=== PATIENT | male | born 1960 | race Caucasian/White ===

== ENCOUNTER 2024-11-13 23:28 | Emergency (ER) | payer SELFPAY ==
--- OUTSIDE RECORDS SUMMARY | 2022-01-28 05:00 | XMS_ITS | Continuity of Care Document ---
Author Organization [facility] Address [address] [place] [address] Phone Care Team Providers Care Janitorial Cleaner Name Role Phone Jaime MSN, WINDOWS APPLICATION DEVELOPER, Ibis Unavailable Unavai lable Procedures Procedure Date SCREEN DEPRESSION PERFORMED Advance Directives Directive Yes / No Effective Date File Name No Information Encounters Encounter Description Practice Location Reason(s) For Visit Diagnoses Date Provider [facility], [address] [place], [address], tel:[phone] [facility] No Information [address] Jaime [address]umann. [address], [place], [id number], [place]. tel:[phone] Family History Family Member Type Diagnosis Age At Onset No Information Payers Payer name Insurance type Covered green party ID Authoriza tion(s) No Information Social History Type Description Quantity Date Captured Comments Alcohol Use Details Unknown Caffeine Use Details Unknown Tobacco Use Status No Information Smoking Status No Information Sex Male Sexual Orientation Straight or heterosexual Jan Gender Identity Male Chief Complaint And Reason For Visit No Information Plan Of Treatment Date Type Action Status Goal Obtain Height, Weight, and B AL. Due on due Goal Tobacco Use Cessation Counse ling. Due on due Goal Drug Abuse Screening Test (D AST-10). Due on due Goal Follow up Plan f or abnormal BMI (Less than 18.5, greater than 25). Due on due Goal Tobacco Use Screening. Due o n due Goal HIV screen. Due on due Goal Lipid panel. Due on due Goal Diabetes screening. Due on due Goal Generalized Anxiety Disorder - 7 (HCANDU-7). Due on due Goal CBC. Due on due Goal Colonoscopy. Due on due Goal CMP. Due on due Goal Depression screening. Due on due Goal Vitamin D. Due on due Goal Vitamin B12. Due on due Goal Hepatitis C Screening. Due o n due Goal FOBT. Due on due Goal Influenza vaccine. Due on due History Of Present Illness Encounter Date Complaint History Of Prese nt Illness No Information Instructions Date Instruction Additional Infor mation No Information Assessments Type Assessment Date No Information
--- NOTE | 2024-11-13 23:26 | ECG_ITS ---
APPROVED REPORT Exam: Resting ECG HR:81 bpm ECG Measurements Heart Rate 81 AXES IN 159 P 63 QRSd 107 QRS 10 QT 357 T 45 QTc 394 Conclusion SINUS RHYTHM WITH OCCASIONAL SUPRAVENTRICULAR PREMATURE COMPLEXES BORDERLINE ECG UNCONFIRMED REPORT Electronically signed by : CASANDRA TOBAR, 11/14/2024 23:58:07
[2024-11-13 23:29] VITALS: BP 123/78; PULSE 85; RESP 20; TEMP 36.9; O2SAT 99; BMI 33.5
--- NOTE | 2024-11-13 23:29 | HMH.EDGENADL ---
Discharge Plan Disposition Patient Disposition: Left Against Medical Advice Prescriptions Prescriptions: No Action pantoprazole 20 MG tablet,delayed release (DR/EC) 20 mg PO DAILY Qty: 20 0RF famotidine 20 MG tablet 20 mg PO BID Qty: 40 0RF Referrals Follow up/Referrals: Nicholas Jett MD [Staff Physician, Cardiology] - See instructions Provider,Referral, [Primary Care Provider, Medical] - See instructions Clinical Impressions Clinical Impression: Chest pain Qualifiers: Chest pain type: unspecified Qualified Code(s): R07.9 - Chest pain, unspecified Print Language Print Language: Tamazight Discharge ED Provider: Roberth Richardson General Adult HPI General Stated complaint: Chest Pain Time Seen by Provider: 11/13/24 23:29 History of Present Illness HPI narrative: 64-year-old male with history of coronary artery disease status post multiple stents presents for chest pain. He reports has been ongoing for months. He reports that he had a stress test with his normal puppet master but it was inconclusive. He presents tonight because he wants to know if we can do a coronary CT scan to see if the blockage that he knows he has has gotten any worse. He reports when he had his last cath they stented to 90+ percent blockages but he had a 45% blockage that they did not stent. He reports that he is feeling a little bit of chest pain and shortness of breath but is not significantly changed from his normal. Related Data Previous Rx's ?Medication ?Instructions ?Recorded famotidine 20 mg tablet 20 mg PO BID #40 tabs 03/15/19 pantoprazole 20 mg tablet,delayed 20 mg PO DAILY #20 tabs 03/15/19 release Allergies Allergy/AdvReac Type Severity Reaction Status Date / Time diphenhydramine (From Allergy Verified 03/15/19 12:05 Benadryl) escitalopram (From Lexapro) Allergy Verified 03/15/19 12:05 [facility] Disclaimer: The information contained in this section may have been updated after the patient was seen, as this information can be updated by other users. Social History Smoking Status: Unknown if ever smoked alcohol intake: never current occupational status: other Travel in the last 8 weeks?: None Other Medical History Have you received the Flu Vaccine for this season: No Have you received the Pneumonia Vaccine: No ROS Obtained: Yes All systems reviewed & no additional complaints except as documented Physical Exam General General appearance: alert and in no apparent distress Head Head exam: atraumatic and normocephalic Eye Eye exam: Present normal appearance, PERRL and EOMI ENT ENT exam: Present normal oropharynx and normal external ear exam Neck Neck exam: Present normal inspection and full ROM Chest Chest inspection: Present normal inspection and symmetric chest wall rise; Absent tenderness Respiratory Respiratory exam: Present normal lung sounds bilaterally; Absent respiratory distress Cardiovascular Cardiovascular exam: Present regular rate and normal rhythm Abdominal Exam Abdominal exam: Present soft; Absent distention, tenderness or guarding Extremities Exam Extremities exam: Present normal inspection; Absent edema or joint swelling Back Exam Back exam: Present normal inspection; Absent tenderness Neurological Exam Neurological exam: Present alert and oriented X3; Absent motor sensory deficit Psychiatric Psychiatric exam: Present normal affect and normal mood Skin Skin exam: Present warm, dry and normal color Lymphatic Lymphatic Findings: no adenopathy Medical Decision Making Medical Records Medical records reviewed: Yes I reviewed the patient's medical records. Screening: Per USPSTF and CDC recommendations, given the prevalence of disease in our region, it is our hospital?s policy to screen for HIV and viral Hepatitis for all patients aged 18 and over and those with ongoing risk factors. Long Inquiry Pt receiving controlled substance: No Long was queried for this patient: No Lab Data Lab results reviewed: Yes I reviewed the patient's lab results. Medical Decision Narrative: 64-year-old male with history of coronary artery disease presents for chronic chest pain.. History was obtained via interactive discussion with patient. On arrival, patient is [afebrile, hemodynamically stable, satting appropriately, alert, oriented x4, GCS 15], moving all extremities spontaneously. Full physical exam performed and significant for no significant physical exam abnormalities Differential includes but is not limited to ACS, PE, aortic pathology, musculoskeletal pain. EKG was obtained and independently interpreted by me, sinus rhythm, no significant ST or T wave changes, ventricular rate of 81. I had an extensive discussion with patient regarding his presentation. I recommended that we do serial troponins, check his D-dimer, perform chest x-ray etc. He reports that he does not think there is anything acute going on and he only wants to know if his blockage is worse. I informed him that we do not have the ability to do coronary CTA's or cardiac MRI, but that it if he met admission criteria we can admit him and potentially have cardiology see him and cath him shortly. He reports that he does not wish to stay for any of that. I again encouraged him to stay but he declined. Patient left AMA. He was given the number for puppet master outpatient. Procedures Risk/Benefits of Procedure(s) Were Explained: Yes Critical Care Critical Care Time Critical Care Time: No
--- OUTSIDE RECORDS SUMMARY | 2024-11-13 23:30 | XMS_ITS | Encounter Summary ---
Author Organization [facility] Address [address] [place] [address] Care Team Providers Care Surfboard Designer Name Role Phone Ruddy Hays MD Primary Care Provider [phone] Lola Almodovar APRN, DNP Unavailable [phone] Reason for Visit * Reason Comments Med Refill Encounter Details Date Type Department Care Team ([facility] st Contact Info) Description 07/25/2020 Refill [facility] [place] [facility] [address] [facility], [address] [place] [address] Sandra Brown, PA [address] [place] [address] Social History Tobacco Use Types Packs/Day Years Used Date Smoking Tobacco: Former Alcohol Use Standard Drinks/Week Comments Not Currently 0 (1 standard drink = 0.6 oz pure alcohol) Alcoholic Drinks/day: Former consumption of alcohol Sex and Gender Information Value Date Recorded Sex Assigned at Not on file Legal Sex Male 8:48 PM EDT Gender Identity Not on file Sexual Orientation Not on file documented as of this encounter Plan of Treatment Not on file documented as of this encounter Visit Diagnoses Not on filedocumented in this encounter Care Teams Surfboard Designer Relationship Specialty Start Date End Date Ruddy Hays MD [address] [place] [address] PCP - General 06/23/20 Lola Almodovar APRN, DNP [address] [place] [address] Nurse Practitioner Urology 10/16/22 documented as of this encounter
--- OUTSIDE RECORDS SUMMARY | 2024-11-13 23:30 | XMS_ITS | Clinical Summary ---
Author Organization [facility] Address [address] [place] [address] Care Team Providers Care Styrene Dehydration Reactor Operator Name Role Phone Ruddy Hays MD Primary Care Provider [phone] Lola Almodovar APRN, DNP Unavailable [phone] Allergies Active Allergy Reactions Criticality Noted Date Comments Diphenhydramine Other - please docum ent in the comment field,Unknown - Patient states they do not know rxn details Low 01/16/2019 stays awake Medications amLODIPine (Norvasc) 10 MG tablet Take 1 tablet (10 mg total) by mouth 1 (one) time each day. 30 tablet 07/25/2020 Active aspirin 81 MG chewable tablet 12/17/2021 Act ga Jardiance 10 MG Take 1 tablet (10 mg) by mouth 1 (one) time each day. 05/07/2022 Active lisinopril 40 MG tablet Take 1 tablet (40 mg) by mouth 1 (one) time each day. 08/12/2022 Active rosuvastatin (Crestor) 5 MG tablet Take 1 tablet (5 mg) by mouth 1 (one) time each day. 06/24/2022 Active tamsulosin (Flomax) 0.4 MG 24 hr capsule Take 1 capsule (0.4 mg) by mouth 1 (one) time each day. 07/16/2022 Active metFORMIN (Glucophage) 500 MG tablet 10/01/2022 Activ e Active Problems Problem Noted Date Diagnosed Date ASCVD (arteriosclerotic cardiovascular disease) 02/26/2019 10/16/2022 Obesity (BMI 30-39.9) 02/26/2019 10/16/2022 EZEKIEL on CPAP 02/26/2019 10/16/2022 Status post non-ST elevation myocardial infarcti on (NSTEMI) 02/26/2019 10/16/2022 HTN (hypertension) 01/26/2019 10/16/2022 Angina pectoris 01/19/2019 10/16/2022 Urinary urgency 03/07/2015 10/16/2022 Overview (10/16/2022): Provider: Donato Lucia Jr;Status: Active Urinary frequency 03/06/2015 10/16/2022 Overview (10/16/2022): From Automated Load;Provider: Donato Lucia Jr;Status: Active Lower urinary tract symptoms due to benign prostatic hyperplasia 03/06/2015 10/16/2022 Overview (10/16/2022): From Automated Load;Provider: Donato Lucia Jr;Status: Active Urge incontinence of urine 03/06/201510/16 Overview (10/16/2022): From Automated Load;Provider: Donato Lucia Jr;Status: Active Resolved Problems Problem Noted Date Diagnosed Date Resolved Date Benign prostatic hyperplasia with nocturia 10/16/2022 10/31/2024 NSTEMI, initial episode of care 01/26/2019 10/31/2024 Nocturia 03/06/2015 10/16/2022 10/31/2024 Overview (10/16/2022): From Automated Load;Provider: Donato Lucia Jr;Status: Active Family History Medical History Relation Name Comments Conversions - Other Mother S/P CABG x 4 Coronary artery disease Mother Conversions - Other Other cardiac pacemaker Relation Name Status Comments Mother Other Social History Tobacco Use Types Packs/Day Years Used Date Smoking Tobacco: Never Smokeless Tobacco: Never Tobacco Cessation:Counseling Given: Not Answered Alcohol Use Standard Drinks/Week Comments Never 0 (1 standard drink = 0.6 oz pure alcohol) Alcoholic Drinks/day: Former consumption of alcohol PHQ-2 Answer Date Recorded Patient Health Questionnaire-2 Score 0 06/19/2023 PHQ-2A Answer Date Recorded Patient Health Questionnaire-2 Score 0 10/16/2022 Sex and Gender Information Value Date Recorded Sex Assigned at Not on file Legal Sex Male 8:48 PM EDT Gender Identity Not on file Sexual Orientation Not on file Last Filed Vital Signs Vital Sign Reading Time Taken Comments Blood Pressure 138/80 06/19/2023 8:20 AM EDT Pulse 80 06/19/2023 8:20 AM EDT Temperature - - Respiratory Rate - - Oxygen Saturation - - Inhaled Oxygen Concentration - - Weight 113 kg (249 lb 1.9 oz) 06/19/2023 8:20 AM EDT Height 180.3 cm (5' 11 ) 06/19/2023 8:20 AM EDT Body Mass Index 34.75 06/19/2023 8:20 AM EDT Plan of Treatment Health Maintenance Due Date Last Done Comments [facility]-HIV Screening 1962 [facility]-/Child/Adol SDOH Screenings 1960 [facility]- SDOH Screenings 1980 [facility]-Adult SDOH Screenings 1980 CT Colonography 10/18/2007 Colonoscopy 10/18/2007 FIT-DNA 10/18/2007 FIT 10/18/2007 FOBT 10/18/2007 Sigmoidoscopy 10/18/2007 [facility]-Colorectal Cancer Screening 10/18/2007 [facility]-Depression Screening 06/18/2024 06/19/2023 [id number]-70 Vaccine ( season) 2024 07/17/2022, 12/31/2020, 06/18/2020, Additional history exists [facility]-Influenza Vaccine (#1) 10/11/202412/26, 01/07/2022, 01/02/2021, Additional history exists [facility]-DTaP,Tdap,and Td Vaccines (3 - Td or Tdap) 01/08/2032 01/07/2022, 02/11/2008 [facility]-RSV Vaccine: 60+ Years or (1 - 1-dose 75+ series) 2037 [facility]-Hepatitis C Screening Completed 01/16/2019 [facility]-Zoster Vaccines Completed 04/05/2021, [facility]-Pneumococcal Vaccine: 50+ Years Completed 12/26/2022 [facility]-Obesity Intervention Completed 024, 10/16/2022, 08/21/2022 HPV Vaccines Aged Out No longer eligi ble based on patient's age to complete this topic [facility]-HIB Vaccines Aged Out No longer e ligible based on patient's age to complete this topic [facility]-Hepatitis A Vaccines Aged Out No longer eligible based on patient's age to complete this topic [facility]-IPV Vaccines Aged Out No longer e ligible based on patient's age to complete this topic [facility]-Rotavirus Vaccines Aged Out No lo nger eligible based on patient's age to complete this topic Procedures Procedure Name Priority Date/Time Associated Diagnosis Comments HEPATITIS C ANTIBODY - ED W/REFLEX TO HCV QUANT PCR Routine 01/16/2019 4:42 PM EST from Last 3 Months or Most Recently Relevant to Health Maintenance Results * [place] Hepatitis C Antibody (01/16/2019 4:42 PM EST) [place] Hepatitis C Ab NEGATIVE Reference Range: Negative SUNQUEST 01/16/2019 4:42 PM EST 01/16/2019 4:58 PM EST us Isaiah Lane MD LAB BLOOD ORDERABLES Final Resu lt SUNQUEST from Last 3 Months or Most Recently Relevant to Health Maintenance Insurance KARLY Care Teams Styrene Dehydration Reactor Operator Relationship Specialty Start Date End Date Ruddy Hays MD [address] [place] [address] [place] [id number] PCP - General 06/23/20 Lola Almodovar APRN, DNP [address] [place] [id number] Nurse Practitioner Urology 10/16/22
--- OUTSIDE RECORDS SUMMARY | 2024-11-13 23:30 | XMS_ITS | Clinical Summary ---
Author Organization [facility] [place] Address [address] [place] [address] Phone Care Team Providers Care Valuation Manager Name Role Phone Unavailable Primary Care Provider Unavailabl e Allergies No known active allergies Medications citalopram (CELEXA) 10 mg Oral Tablet Take by mouth daily. Active lisinopril (PRINIVIL;ZESTRI L) 10 mg Oral Tablet Take by mouth daily. Active aspirin 81 mg Oral Tablet, Delayed Release (E.C.) Take by mouth daily. Active Social History Tobacco Use Types Packs/Day Years Used Date Smoking Tobacco: Never Smokeless Tobacco: Former Sex and Gender Information Value Date Recorded Sex Assigned at Not on file Legal Sex Male 11:04 AM EST Gender Identity Not on file Sexual Orientation Not on file Last Filed Vital Signs Vital Sign Reading Time Taken Comments Blood Pressure 130/84 01/16/2019 11:20 AM EST Pulse 83 01/16/2019 11:20 AM EST Temperature 36.7 C (98 F) 01/16/2019 11:20 AM EST Respiratory Rate - - Oxygen Saturation 98% 01/16/2019 11:20 AM EST Inhaled Oxygen Concentration - - Weight 120.2 kg (265 lb) 01/16/2019 11:20 AM EST Height - - Body Mass Index - - Plan of Treatment Health Maintenance Due Date Last Done Comments Annual Wellness Exam 1965 Hepatitis C Screening 1980 DTaP/TDaP/Td (1 - Tdap) 1981 Cologuard 10/18/2007 Colon Cancer Screening 10/18/2007 Colonoscopy 10/18/2007 FIT 10/18/2007 Sigmoidoscopy 10/18/2007 Virtual Colonography 10/18/2007 Pneumococcal Vaccine 50+ (1 of 1 - PCV) 2012 Zoster (1 of 2) 2012 COVID-19 Vaccine (2023-2 5 season) 2024 Influenza Vaccine (#1) 2024 Hepatitis B Vaccine Aged Out No longe r eligible based on patient's age to complete this topic Meningococcal B Vaccine Aged Out No l onger eligible based on patient's age to complete this topic Insurance [employer] [place] [id number] [facility]
--- OUTSIDE RECORDS SUMMARY | 2024-11-13 23:30 | XMS_ITS | Encounter Summary ---
Author Organization [facility] Address [address] [place] [id number] Care Team Providers Care Lpn Cma Name Role Phone Ruddy Hays MD Primary Care Provider [phone] Encounter Details Date Type Department Care Team (Late st Contact Info) Description 08/23/2024 Results Follow-Up [facility] [address] [place] [address] Nikky Abel APRN [address] [place] [address] Social History Tobacco Use Types Packs/Day Years Used Date Smoking Tobacco: Former Cigarettes Alcohol Use Standard Drinks/Week Comments Not Currently 0 (1 standard drink = 0.6 oz pur e alcohol) Sex and Gender Information Value Date Recorded Sex Assigned at Not on file Legal Sex Male 9:19 PM EDT Gender Identity Not on file Sexual Orientation Not on file documented as of this encounter Plan of Treatment Not on file documented as of this encounter Visit Diagnoses Not on filedocumented in this encounter Care Teams Lpn Cma Relationship Specialty Start Date End Date Ruddy Hays MD PCP - General Family Medicine 03/21/21 documented as of this encounter
--- OUTSIDE RECORDS SUMMARY | 2024-11-13 23:30 | XMS_ITS | Clinical Summary ---
Author Organization [facility] Address [address] [place] [address] Care Team Providers Care Supervisor Publications Name Role Phone Ruddy Hays MD Primary Care Provider [phone] Allergies No known active allergies Medications Aspirin 81 MG capsule Take 1 capsule by mouth Daily. Active citalopram (CeleXA) 20 MG tablet Take 1 tablet by mouth Daily. Active Jardiance 25 MG tablet tablet Take 1 tablet by mouth Daily. Active lisinopril (PRINIVIL,ZESTR IL) 40 MG tablet Take 1 tablet by mouth Daily. Active rosuvastatin (CRESTOR) 20 MG tablet Take 1 tablet by mouth Daily. Active Semaglutide,0.2 5 or 0.5MG/DOS, (Ozempic, 0.25 or 0.5 MG/DOSE,) 2 MG/3ML solution pen-injector Inject 1 mg under the skin into the appropriate area as directed 1 (One) Time Per Week. Active Active Problems Problem Noted Date Diagnosed Date Backache 06/30/2024 Myocardial infarction 06/30/2024 Chronic depression 06/30/2024 History of diabetes mellitus 06/30/2024 Panic attack 06/30/2024 History of myocardial infarction 06/30/2024 Dyspnea on exertion 11/13/2023 Anxiety 02/06/2022 Hyperlipidemia 01/16/2022 Decreased testosterone level 01/07/2022 History of total knee arthroplasty 12/24/2021 Osteoarthritis of both knees 12/24/2021 ASCVD (arteriosclerotic cardiovascular disease) 02/26/2019 Obstructive sleep apnea syndrome 02/26/2019 Angina pectoris 01/19/2019 Nocturia 03/06/2015 Overview (06/30/2024): From Automated Load;Provider: Donato Lucia Jr;Status: Active Benign essential hypertension 06/20/2005 Insomnia 04/05/2004 Encounters Date Type Department Care Team Description 08/23/2024 Results Follow-Up [facility] [address] [place] [address] Nikky Abel APRN 08/20/2024 7:46 AM EDT - 08/20/2024 11:59 PM EDT Hospital Encounter [facility] [address] [place] [address] Robert Riggins MD ASCVD (arteriosclerotic cardiovascular disease) Discharge Disposition: Home or Self Care 08/20/2024 Travel from Last 3 Months Family History Medical History Relation Name Comments Stroke Father Diabetes Mother Heart disease Mother Hypertension Mother Relation Name Status Comments Father Mother Social History Tobacco Use Types Packs/Day Years Used Date Smoking Tobacco: Former Cigarettes Tobacco Cessation:Counseling Given: Not Answered Alcohol Use Standard Drinks/Week Comments Not Currently 0 (1 standard drink = 0.6 oz pur e alcohol) Sex and Gender Information Value Date Recorded Sex Assigned at Not on file Legal Sex Male 9:19 PM EDT Gender Identity Not on file Sexual Orientation Not on file Last Filed Vital Signs Vital Sign Reading Time Taken Comments Blood Pressure 146/84 08/20/2024 11:07 AM EDT Pulse 81 06/30/2024 10:13 AM EDT Temperature - - Respiratory Rate - - Oxygen Saturation 96% 06/30/2024 10:13 AM EDT Inhaled Oxygen Concentration - - Weight 114 kg (251 lb 5.2 oz) 08/20/2024 10:48 A M EDT Height 180.3 cm (5' 10.98 ) 08/20/2024 10:48 AM EDT Body Mass Index 35.07 08/20/2024 10:48 AM EDT Plan of Treatment Health Maintenance Due Date Last Done Comments DIABETIC EYE EXAM 1972 DIABETIC FOOT EXAM 1972 URINE MICROALBUMIN-CREATININ E RATIO (uACR) 1972 COLOGUARD 10/18/2007 COLON CANCER SCREENING 5 YEA R SIGMOIDOSCOPY 10/18/2007 CT COLONOGRAPHY 10/18/2007 FECAL OCCULT BLOOD TEST 10/18/2007 FIT Testing (1 year) 10/18/2007 LIPID PANEL 01/18/2020 01/17/2019 ANNUAL PHYSICAL 06/29/2024 HEMOGLOBIN A1C 06/29/2024 01/16/2019 HEPATITIS C SCREENING 06/29/2024 INFLUENZA VACCINE 09/10/2024 01/12/2024, , 01/07/2022, Additional history exists TDAP/TD VACCINES (3 - Td or Tdap) 01/08/2032 022, 02/11/2008 COLONOSCOPY 01/13/2033 01/13/2023, 02/11/2012 COLORECTAL CANCER SCREENING 01/13/2033 ZOSTER VACCINE Completed 04/05/2021, 12/27/2019 Pneumococcal Vaccine 50+ Completed 12/26/2022 Procedures Procedure Name Priority Date/Time Associated Diagnosis Comments SE QUAD ONLY W/ CONTRAST AND DOBUTAMINE Routine 08/20/2024 9:40 AM EDT ASCVD (arteriosclerotic cardiovascular disease) from Last 3 Months Results * SE QUAD ONLY W/ CONTRAST AND DOBUTAMINE (08/20/2024 9:40 AM EDT) BH CV STRESS PROTOCOL 1 Reyes Stage 1 1.0 Duration Min Stage 1 3 Duration Sec Stage 1 0 Grade Stage 1 10 Speed Stage 1 1.7 BH CV STRESS METS STAGE 1 5.0 Baseline HR 80 bpm Baseline BP 106/44 mmHg O2 sat rest 95 % Target HR (85%) 135 bpm Max. Pred. HR (100%) 159 bpm HR Stage 1 94 BP Stage 1 126/66 O2 Stage 1 97 Stage 2 2.0 HR Stage 2 103 BP Stage 2 124/62 O2 Stage 2 97 Duration Min Stage 2 3 Duration Sec Stage 2 0 Grade Stage 2 12 Speed Stage 2 2.5 BH CV STRESS METS STAGE 2 7.5 Stage 3 3.0 HR Stage 3 116 BP Stage 3 138/70 O2 Stage 3 97 Duration Min Stage 3 3 Duration Sec Stage 3 0 Grade Stage 3 14 Speed Stage 3 3.4 BH CV STRESS METS STAGE 3 10.0 Stage 4 4.0 HR Stage 4 131 BP Stage 4 152/60 O2 Stage 4 97 Duration Min Stage 4 0 Duration Sec Stage 4 25 Grade Stage 4 16 Speed Stage 4 4.2 BH CV STRESS METS STAGE 4 13.5 Recovery HR 84 bpm Recovery BP 158//74 mmHg Recovery O2 98 % BH CV STRESS PROTOCOL 2 Pharmacologic BH CV STRESS PROTOCOL 2 STAGE 1 1 BH CV STRESS PROTOCOL 2 HR STAGE 1 79 BH CV STRESS PROTOCOL 2 BP STAGE 1 88/42 BH CV STRESS PROTOCOL 2 O2 STAGE 1 96 BH CV STRESS PROTOCOL 2 DURATION MIN STAGE 1 2 BH CV STRESS PROTOCOL 2 DURATION SEC STAGE 1 0 BH CV STRESS PROTOCOL 2 DOSE DOBUTAMINE STAGE 1 10 BH CV STRESS PROTOCOL 2 RATE STAGE 1 65 BH CV STRESS PROTOCOL 2 STAGE 2 2 BH CV STRESS PROTOCOL 2 HR STAGE 2 94 BH CV STRESS PROTOCOL 2 BP STAGE 2 102/38 BH CV STRESS PROTOCOL 2 O2 STAGE 2 96 BH CV STRESS PROTOCOL 2 DURATION MIN STAGE 2 2 BH CV STRESS PROTOCOL 2 DURATION SEC STAGE 2 0 BH CV STRESS PROTOCOL 2 DOSE DOBUTAMINE STAGE 2 20 BH CV STRESS PROTOCOL 2 RATE STAGE 2 130 BH CV STRESS PROTOCOL 2 STAGE 3 3 BH CV STRESS PROTOCOL 2 HR STAGE 3 74/18 BH CV STRESS PROTOCOL 2 O2 STAGE 3 97 BH CV STRESS PROTOCOL 2 DURATION MIN STAGE 3 2 BH CV STRESS PROTOCOL 2 DURATION SEC STAGE 3 0 BH CV STRESS PROTOCOL 2 DOSE DOBUTAMINE STAGE 3 30 Stress Rate Stage 7 194 mL/hr EF(MOD-bp) 63.8 % LVIDd 5.1 cm LVIDs 3.6 cm IVSd 0.80 cm LVPWd 0.90 cm FS 29.4 % IVS/LVPW 0.89 cm ESV(cubed) 46.7 ml LV Sys Vol (BSA corrected) 13.6 cm2 EDV(cubed) 132.7 ml LV [place] Vol (BSA corrected) 38.1 cm2 LV mass(C)d 151.8 grams EDV(MOD-sp2) 111.0 ml EDV(MOD-sp4) 88.4 ml ESV(MOD-sp2) 41.8 ml ESV(MOD-sp4) 31.6 ml SV(MOD-sp2) 69.2 ml SV(MOD-sp4) 56.8 ml SVi(MOD-SP2) 29.8 ml/m2 SVi(MOD-SP4) 24.5 ml/m2 EF(MOD-sp2) 62.3 % EF(MOD-sp4) 64.3 % TR max karina 207.0 cm/sec LA dimension (2D) 3.7 cm Ao pk karina 116.0 cm/sec Ao max PG 5.4 mmHg Ao mean PG 3.0 mmHg Ao V2 VTI 24.9 cm TR max PG 17.1 mmHg RVSP(TR) 25 mmHg RAP systole 8 mmHg BH CV VAS BP RIGHT ARM 146/84 mmHg PostStressEF 65 % Anatomical Region Laterality Modality Other, Ultrasoun d Narrative 08/23/2024 9:06 AM EDT Chemical stress test was performed using intravenous dobutamine per protocol. The test was stopped after achieving a heart rate of 131/min due to hypotensive blood pressure response. The patient did not complain of any chest pain. Negative dobutamine stress test for anginal symptoms or diagnostic ST segment changes at 82% of maximal predicted heart rate for age. Resting echocardiogram showed normal left ventricular systolic function, estimated EF 60%, trace mitral regurgitation and mild tricuspid regurgitation with normal RVSP. Normal stress echo with no significant echocardiographic evidence for myocardial ischemia. Post-rest ejection fraction 65%. This is a near normal but technically nondiagnostic stress test due to failure to achieve the target heart rate. Left Ventricle Normal left ventricular cavity size and wall thickness noted. All left ventricular wall segments contract normally. Right Ventricle Normal right ventricular cavity size noted. Left Atrium Normal left atrial cavity size noted. Right Atrium Normal right atrial cavity size noted. Mitral Valve There is calcification of the mitral valve. Trace mitral valve regurgitation is present. Tricuspid Valve Tricuspid valve not well visualized. The tricuspid valve is grossly normal in structure. Estimated right ventricular systolic pressure from tricuspid regurgitation is normal (<35 mmHg). Calculated right ventricular systolic pressure from tricuspid regurgitation is 25 mmHg. Aortic Valve The aortic valve is abnormal in structure. There is calcification of the aortic valve. The aortic valve was poorly visualized but appears trileaflet. No aortic valve regurgitation is present. Pulmonic Valve The pulmonic valve is not well visualized. The pulmonic valve is grossly normal in structure. There is no pulmonic valve regurgitation present. Pericardium There is no evidence of pericardial effusion. . Greater Vessels No dilation of the aortic root is present. Stress Findings No ECG evidence of myocardial ischemia. Negative clinical evidence of myocardial ischemia. Findings consistent with a normal ECG stress test. Exam terminated when patients blood pressure dropped to 74/18. Target heart rate was not achieved.. Rest ECG Baseline ECG of normal sinus rhythm noted at rest. PACs noted. Stress ECG Stress ECG rhythm of sinus tachycardia noted. Non-specific ST-T wave changes noted during stress. Arrhythmias during stress: frequent PACs, rare PVCs. Arrhythmias were not significant during stress. Stress ECG was interpretable. Ventricle Size / Description Segment augmentation had a normal response to stress. Cavity size behaved normally in response to stress. Left ventricular function is normal. Septal wall motion is normal. Stress Description A stress test was performed following the Reyes protocol in conjunction with dobutamine without low-level exercise. Pharmacologic stress as a supplement to exercise due to unable to reach THR. The clinician observed expected effects during the stress test. Blood pressure demonstrated a hypotensive response to stress. Heart rate demonstrated a blunted response to stress. Stress Echo - Peak Stress Findings Post stress images with adequate visualization of myocardium to assess for ischemia. Normal stress echo with no significant echocardiographic evidence for myocardial ischemia. Recovery ECG During recovery, the patient complained of no significant symptoms following stress. Sinus rhythm was noted during recovery. Arrhythmias during recovery: occasional PAC's. Arrhythmias were not significant during recovery. Test Computer Programmer ECG [place] Study Quality The study is technically adequate for diagnosis. Enhancement Agent Details Verbal consent was obtained from the patient to use Lumason image enhancer in order to optimize the study. The use of Lumason was indicated to improve delineation of the left ventricular endocardial border. 5 mL of Lumason was manually activated. A total of 5 mL of the activated Lumason was administered and the remaining contrast was wasted and discarded. No adverse reaction to image enhancer was noted. Robert Riggins MD CV ECHO ORDERABLES Final Resul t from Last 3 Months Insurance [employer] Care Teams Supervisor Publications Relationship Specialty Start Date End Date Ruddy Hays MD PCP - General Family Medicine 03/21/21
[2024-11-13 23:46] VITALS: BP 123/78; PULSE 85; RESP 20; TEMP 36.9; O2SAT 99
== END 2024-11-13 23:47 | disposition left against medical advice (07) ==
PROVIDERS: Emergency Provider Emergency Medicine
DX: R07.9 Chest pain, unspecified (principal); R06.02 Shortness of breath; Z86.79 Personal history of other diseases of the circulatory system; Z95.5 Presence of coronary angioplasty implant and graft
CPT/HCPCS: 93005; 99284